=== PATIENT | female | born 1965 | race Caucasian/White ===

== ENCOUNTER 2020-10-26 04:33 | Inpatient (IN) | payer OTHER ==
[2020-10-23 11:51] VITALS: BMI 22.8
[2020-10-26] MEDS ORDERED: PHENAZOPYRIDINE HCL 100 MG TABLET (FP) PO ONE (07:00)
[2020-10-26] MEDS ORDERED: CEFAZOLIN 2 GM/D5W 2 GM/50 ML ML IVPB ONE (07:00)
[2020-10-26] MEDS ORDERED: PHENAZOPYRIDINE HCL 100 MG TABLET (FP) ONE (07:04)
[2020-10-26] MEDS ORDERED: ceFAZolin SODIUM 1 GM VIAL ONE (07:05)
[2020-10-26] MEDS ORDERED: ROPIVACAINE HCL 0.5% 30ML VIAL ONE (07:17)
[2020-10-26] MEDS ORDERED: DEXAMETHASONE SOD PHOSPHATE/PF 10 MG/ML SDV ONE (07:17)
[2020-10-26] MEDS ORDERED: MIDAZOLAM HCL 2 MG/2 ML SINGLE DOSE VIAL ONE ×3 (07:19→07:21)
[2020-10-26] MEDS ORDERED: fentaNYL CITRATE 250 MCG/5 ML VIAL ONE (07:21)
[2020-10-26] MEDS ORDERED: PROPOFOL 20 ML ONE ×3 (07:21)
[2020-10-26] MEDS ORDERED: SUCCINYLCHOLINE CHLORIDE 200 MG/10 ML SYRINGE ONE (07:21)
[2020-10-26] MEDS ORDERED: ROCURONIUM BROMIDE 50 MG/5 ML SYRINGE ONE (07:21)
[2020-10-26] MEDS ORDERED: ceFAZolin SODIUM 1 GM VIAL IVPB ONE (08:05)
[2020-10-26] MEDS ORDERED: PROMETHAZINE HCL 25 MG/1 ML VIAL IVPUSH PRN (08:22)
[2020-10-26] MEDS ORDERED: oxyCODONE HCL 5 MG TABLET PO PRN ×2 (08:23)
[2020-10-26] MEDS ORDERED: LACTATED RINGERS SOLUTION 1,000 ML IV SCH (08:30)
[2020-10-26] MEDS ORDERED: ACETAMINOPHEN 325 MG TABLET (FP) PO SCH (08:30)
[2020-10-26] MEDS ORDERED: NEOSTIGMINE METHYLSULFATE 0.5 MG/ML - 10 ML MDV ONE (10:03)
[2020-10-26 10:29] LABS: PH,URINE 5.5 (5.0-8.0); URINE APPEARANCE CLEAR; URINE BILIRUBIN NEGATIVE (NEGATIVE); URINE COLOR YELLOW; URINE GLUCOSE (UA) NEGATIVE (NEGATIVE); URINE KETONE NEGATIVE (NEGATIVE); URINE PROTEIN NEGATIVE (NEGATIVE); URINE UROBILINOGEN 0.2 mg/dL (0.2-1.0)
[2020-10-26 10:30] LABS: URINE LEUK ESTERASE NEGATIVE (NEGATIVE); URINE NITRITE NEGATIVE (NEGATIVE)
[2020-10-26] MEDS ORDERED: BISACODYL 5 MG TABLET.DR (FP) PO PRN (10:49)
[2020-10-26] MEDS ORDERED: ONDANSETRON 4 MG/2 ML VIAL IVPUSH PRN (10:49)
[2020-10-26] MEDS ORDERED: DOCUSATE SODIUM 100 MG CAPSULE (FP) PO PRN (10:49)
[2020-10-26] MEDS ORDERED: ACETAMINOPHEN 1000 MG/100 ML VIAL (NON FORMULARY) IVPB ONE ×2 (10:56→11:30)
[2020-10-26 11:43] LABS: EPI CELLS 4.8 /uL (0-25.1); HYALINE CASTS 0.89 /uL (0-3.1); URINE BACTERIA 13.3 /uL (0-1359); URINE RBC 9.6 /uL (0-23.9); URINE WBC 3.8 /uL (0-25.8)
[2020-10-26] MEDS: oxyCODONE HCL 10 MG SUSTAINED ACTING TABLET PO SCH ×2 (13:45→22:05)
[2020-10-26] MEDS: CEFAZOLIN 1 GM/D5W 1 GM/50 ML BAG IVPB SCH (15:52)
[2020-10-26] MEDS: ACETAMINOPHEN 325 MG TABLET (FP) PO SCH (17:52)
[2020-10-26 18:30] LABS: HEMATOCRIT 34.3 % (32.4-45.2); HEMOGLOBIN 11.4 GM/dL (10.7-15.3); MCH 28.4 pg (25.7-33.7); MCHC 33.3 g/dl (32.0-36.0); MEAN CELL VOLUME 85.1 fl (80-96); MEAN PLT VOLUME 8.4 fl (7.5-11.1); PLATELET COUNT 175 K/MM3 (134-434); RBC 4.03 M/mm3 (3.60-5.2); RDW 14.5 % (11.6-15.6); WHITE BLOOD COUNT 9.7 K/mm3 (4.0-10.0)
[2020-10-26 18:52] LABS: CALCIUM 8.2 mg/dL (8.5-10.1)
[2020-10-26 18:53] LABS: BLOOD UREA NITROGEN 11.8 mg/dL (7-18)
[2020-10-26 18:56] LABS: CREATININE 0.6 mg/dL (0.55-1.3)
[2020-10-27] MEDS: ACETAMINOPHEN 325 MG TABLET (FP) PO SCH ×4 (00:10→17:58)
[2020-10-27] MEDS: CEFAZOLIN 1 GM/D5W 1 GM/50 ML BAG IVPB SCH (00:10)
[2020-10-27] MEDS: IBUPROFEN 800 MG/8 ML IJ IVPB PRN ×2 (01:06→08:05)
[2020-10-27 09:12] LABS: POTASSIUM 4.2 mmol/L (3.5-5.1)
[2020-10-27 09:17] LABS: HEMATOCRIT 28.7 % (32.4-45.2); HEMOGLOBIN 9.7 GM/dL (10.7-15.3); MCH 28.4 pg (25.7-33.7); MCHC 33.8 g/dl (32.0-36.0); MEAN CELL VOLUME 84.2 fl (80-96); PLATELET COUNT 164 K/MM3 (134-434); RBC 3.41 M/mm3 (3.60-5.2); RDW 14.4 % (11.6-15.6)
[2020-10-27 09:22] LABS: CALCIUM 8.2 mg/dL (8.5-10.1)
[2020-10-27 09:23] LABS: BLOOD UREA NITROGEN 10.4 mg/dL (7-18)
[2020-10-27 09:26] LABS: CREATININE 0.5 mg/dL (0.55-1.3)
[2020-10-27] MEDS: PANTOPRAZOLE 20 MG TABLET PO SCH (10:07)
[2020-10-27] MEDS: oxyCODONE HCL 10 MG SUSTAINED ACTING TABLET PO SCH ×2 (10:07→22:14)
[2020-10-27] MEDS: ENOXAPARIN NA (PORCINE) 40 MG/0.4 ML DISP.SYRIN SQ SCH (10:08)
[2020-10-27] MEDS: SIMETHICONE 80 MG TAB.CHEW (FP) PO PRN (23:50)
[2020-10-28] MEDS: ACETAMINOPHEN 325 MG TABLET (FP) PO SCH ×3 (00:53→13:06)
[2020-10-28 08:40] VITALS: BP 98/61; PULSE 86; TEMP 98.1
[2020-10-28] MEDS: SIMETHICONE 80 MG TAB.CHEW (FP) PO PRN (09:58)
[2020-10-28] MEDS: ENOXAPARIN NA (PORCINE) 40 MG/0.4 ML DISP.SYRIN SQ SCH (09:58)
[2020-10-28 10:39] LABS: BASO % 0.3 % (0-2.0); HEMATOCRIT 28.4 % (32.4-45.2); HEMOGLOBIN 9.4 GM/dL (10.7-15.3); LYMPH % 20.7 % (8-40); MCHC 32.9 g/dl (32.0-36.0); MEAN CELL VOLUME 85.2 fl (80-96); MEAN PLT VOLUME 9.1 fl (7.5-11.1); PLATELET COUNT 138 K/MM3 (134-434); RBC 3.34 M/mm3 (3.60-5.2); RDW 14.3 % (11.6-15.6); WHITE BLOOD COUNT 6.7 K/mm3 (4.0-10.0)
[2020-10-28] MEDS: PANTOPRAZOLE 20 MG TABLET PO SCH (12:11)
== END 2020-10-28 14:15 | disposition home or self-care (01) | DRG 743 ==
LOC: JASUSAT 04:33 → J2C 10:50 → J3W 13:39
PROVIDERS: ADMIT Obstetrics & Gynecology; ATTEND Obstetrics & Gynecology
PROC: 0UT70ZZ Resection of Bilateral Fallopian Tubes, Open Approach (ICD-10-PCS; 2020-10-26)
PROC: 8E0W0CZ Robotic Assisted Procedure of Trunk Region, Open Approach (ICD-10-PCS; 2020-10-26)
PROC: 0UT90ZZ Resection of Uterus, Open Approach (ICD-10-PCS; principal; 2020-10-26 07:30)
PROC: 0UJD4ZZ Inspection of Uterus and Cervix, Percutaneous Endoscopic Approach (ICD-10-PCS; 2020-10-26 07:30)
DX: D25.9 Leiomyoma of uterus, unspecified (principal); R10.2 Pelvic and perineal pain; Z87.42 Personal history of other diseases of the female genital tract; N87.1 Moderate cervical dysplasia; E78.5 Hyperlipidemia, unspecified
CPT/HCPCS: 36415; 71046-TC-FY; 74018-TC-FY; 80048; 81003; 85025; 85027; 86850; 86900; 86901; 88302-TC; 88304-TC; 88305-TC; 88307-TC; 94760; J0131